=== PATIENT | male | born 1990 | race Caucasian/White ===

== ENCOUNTER 2024-08-25 20:45 | Emergency (ER) | payer SELFPAY ==
[~2024-08-25] VITALS: Ht 157.5 cm; Wt 69.7 kg
[2024-08-25 20:59] VITALS: O2SAT 97
[2024-08-25] MEDS: KETOROLAC 30MG/ML VIAL IM ONE (21:57)
[2024-08-25 23:08] LABS: CHLORIDE 109 mEq/L (98-107)
[2024-08-25 23:09] LABS: POTASSIUM 3.6 mEq/L (3.5-5.1); SODIUM 140 mEq/L (136-145)
[2024-08-25 23:10] LABS: CALCIUM 9.6 mg/dL (8.7-10.4); CARBON DIOXIDE 23 mEq/L (21-32)
[2024-08-25 23:15] LABS: CREATININE 0.8 mg/dL (0.6-1.3); GLUCOSE 88 mg/dL (70-105); TROPONIN I HIGH SENSITIVITY < 4 ng/L (3.0-53); UREA NITROGEN BLOOD 17 mg/dL (9-23)
[2024-08-25 23:30] VITALS: BP 136/81; PULSE 90; RESP 17; TEMP 36.39180; O2SAT 100
[2024-08-25] MEDS ORDERED: IBUP-2028 MT (23:30)
== END 2024-08-25 23:30 | disposition home or self-care (01) ==
LOC: ER 20:45
DX: R07.89 Other chest pain (principal); M79.602 Pain in left arm; M79.601 Pain in right arm; Z79.1 Long term (current) use of non-steroidal anti-inflammatories (NSAID)
CPT/HCPCS: 99285; 71045; 80048; 84484; 36415; 93005; 96372; J1885